=== PATIENT | male | born 1950 | race Two or more races ===

== ENCOUNTER 2024-07-29 10:32 | Emergency (ER) | payer MEDICARE, SELFPAY ==
[2024-07-29 10:49] VITALS: BP 142/83; PULSE 98; RESP 18; TEMP 37.3; O2SAT 95; BMI 41.0
--- NOTE | 2024-07-29 10:59 | PD.EDRME ---
Rapid Medical Screening Exam E Arrival date/time: 07/29/24 10:32 This is a 74-year-old male that comes in with complaints of abdominal pain nausea vomiting for the past 2 days. Patient states he has not had a bowel movement in 2 days. Patient does have a history of diabetes, hyperlipidemia, and high blood pressure. Patient states he has some pain with urination. I have greeted and performed a focused initial assessment of this patient. Initial appropriate labs ordered at this time. A comprehensive ED assessment and evaluation of the patient and analysis of all test and completion of medical decision making process will be conducted by additional ED provider. Chief Complaint: Abdominal Pain Time Seen by Provider: 07/29/24 10:51 Vital signs: Vital Signs Temperature 99.2 F 07/29/24 10:49 Pulse Rate 98 07/29/24 10:49 Respiratory Rate 18 07/29/24 10:49 Blood Pressure 142/83 H 07/29/24 10:49 Pulse Oximetry (%) 95 07/29/24 10:49 Oxygen Delivery Method Room Air 07/29/24 10:49
--- NOTE | 2024-07-29 11:00 | XR_ITS ---
Examination: Abdomen AP single view Technique: AP portable supine abdomen, single view Exam date and time: July 29, 2024 at 1105 hours INDICATIONS: Abdominal pain and vomiting beginning 2 days ago FINDINGS: Moderate to large amount stool in the right colon No obstruction Mild small bowel ileus air distended small bowel loops in the left abdomen No free air Moderate osteopenia IMPRESSION: Minimal small bowel ileus
[2024-07-29 11:35] LABS: Basophils % (Auto) 0 % (0-2.5); Eosinophils # (Auto) 0.3 Thou/mm3 (0.0-0.5); Eosinophils % (Auto) 3 % (0-10); Hematocrit 39.5 % (41.0-53.0); Hemoglobin 13.5 g/dL (13.5-16.0); Immature Granulocytes % (Auto) 0 % (0-0); Immature Granulocytes Auto 0.02 Thou/mm3 (0.00-0.00); Lymphocytes # (Auto) 2.1 Thou/mm3 (1.0-4.8); Lymphocytes % (Auto) 22 % (10-50); Mean Corpuscular HGB Conc 34.2 g/dl (31.0-37.0); Mean Corpuscular Hemoglobin 30.2 pg (25.0-35.0); Mean Corpuscular Volume 88 fL (80-100); Monocytes # (Auto) 1.2 Thou/mm3 (0.0-0.8); Monocytes % (Auto) 12 % (0-12); Neutrophils # (Auto) 5.9 Thou/mm3 (1.8-7.7); Neutrophils % (Auto) 62 % (37-80); Nucleated Red Blood Cell % 0 /100 WBC (0); Platelet Count 310 Thou/mm3 (140-440); Red Blood Count 4.47 Miln/mm3 (4.50-5.90); White Blood Count 9.5 Thou/mm3 (3.8-10.6)
[2024-07-29 11:53] LABS: Alanine Aminotransferase 66 U/L (10-49); Albumin, Serum 4.3 gm/dL (3.4-4.8); Albumin/Globulin Ratio 1.5 (1.2-2.2); Alkaline Phosphatase 80 U/L (46-116); Anion Gap 9 (7-16); Aspartate Amino Transferase 46 U/L (0-34); BUN/Creatinine Ratio 5 Ratio (12-20); Bilirubin,Total 0.9 mg/dL (0.3-1.2); Blood Urea Nitrogen < 5 mg/dL (9-23); Calcium 8.7 mg/dL (8.3-10.6); Calcium (Corrected) 8.7 mg/dL (8.5-10.1); Carbon Dioxide 29.7 mMol/L (20.0-31.0); Chloride 93 mMol/L (98-107); Estimated Creatinine Clearance 66.9 mL/min (>60); Globulin 2.8 gm/dL (2.3-3.5); Glucose 216 mg/dL (74-106); Lipase 28 U/L (12-53); Osmolality,Calculated 268 (275-295); Potassium 3.6 mMol/L (3.4-5.1); Sodium 132 mMol/L (136-145); Total Protein 7.1 gm/dL (5.7-8.2); eGFR > 60 See Note
[2024-07-29 12:44] LABS: Collection Type, Urine Voided
[2024-07-29 12:54] LABS: Bilirubin,Urine Negative (Negative); Blood,Urine Trace (Negative); Clarity,Urine Clear (Clear/Hazy); Color,Urine Yellow (Lt Yel-Yel); Culture Indicated,Urine Not Indicated; Glucose, Urine Trace (Negative); Ketones,Urine Trace (Negative); Leukocyte Esterase,Urine Negative (Negative); Nitrite,Urine Negative (Negative); PH,Urine 5.5 (5.0-7.0); Protein,Urine Negative (Neg - Trace); RBC,Urine 1 /hpf (0-3); Specific Gravity,Urine 1.014 (1.001-1.035); Squamous Epithelial Cell,Urine < 1 /hpf (0-5); Urobilinogen,Urine Negative mg/dL (0.0-1.0); WBC,Urine 1 /hpf (0-5)
[2024-07-29 14:25] VITALS: BP 132/78; PULSE 76; RESP 18; TEMP 36.8; O2SAT 95
--- NOTE | 2024-07-29 14:44 | XR_ITS ---
Examination: CT abdomen with intravenous contrast CT pelvis with intravenous contrast 2-D coronal reconstructions 2-D sagittal reconstructions Date and time of exam:July 29, 2024, 1645 hours Comparison April 30, 2016 INDICATIONS: Abdominal pain and distention vomiting today. CTDI: vol (mGy) 14.6 DLP: (mGycm) 820 Technique: Multiple axial sections of the abdomen and pelvis have been obtained. 64 slice high-resolution scanner used. 3 mm axial sections have been obtained, post intravenous injection 60 cc [id number] 2-D sagittal, coronal reconstructions obtained. Low dose protocols were performed. One or more of the following dose reduction techniques were used; automated exposure control, adjustment of the mA and/or KV according to patient size, use of iterative reconstruction technique. Findings: No focal liver or splenic lesion Cholelithiasis No pancreatic or adrenal mass 5 cm lateral right renal cyst Minimal perinephric stranding Aorta normal size No pericecal inflammatory change No bowel obstruction Contracted urinary bladder Transverse prostate dimension 4.4 cm Moderate osteopenia IMPRESSION: Minimal perinephric stranding No CT findings of appendicitis or bowel obstruction Moderate prostatomegaly
--- NOTE | 2024-07-29 14:46 | PD.EDABDPN ---
ED Abdominal Pain RME/HPI General Chief Complaint: Abdominal Pain Stated complaint: CONSTIPATED, ABD PAIN Time seen by provider: 07/29/24 10:51 Arrival date/time: 07/29/24 10:32 RME / HPI RME / HPI narrative: 74-year-old male patient with significant history of diabetes mellitus, hypertension, came in for evaluation regarding abdominal distention. Patient's been having the abdominal distention for the last 2 days associated with no bowel movement, not passing gas, vomiting, last vomitus in the triage. Nonbloody. Patient denies any fever. Patient's been taking laxative and Dulcolax suppository with no relief. Abdominal surgery includes umbilical hernia 20 years ago. Related Data Home Medications ?Medication ?Instructions ?Recorded ?Confirmed diclofenac sodium 75 mg 75 mg PO BID PRN PAIN ##0 07/28/15 tablet,delayed release Glipizide/Metformin * (METAGLIP 1 tab PO QDAY #0 tabs 04/30/16 5/500 *) atorvastatin 10 mg tablet (Lipitor) 10 mg PO QDAY #0 tabs 04/30/16 losartan 50 mg tablet (Cozaar) 50 mg PO QDAY #0 tabs 04/30/16 Previous Rx's ?Medication ?Instructions ?Recorded ibuprofen 600 mg tablet 600 mg PO Q6HR PRN PAIN #30 tabs 07/28/15 Nitrofurantoin Macrocyrstals SR * 100 mg PO BID #28 caps 05/04/16 (MACROBID *) peg 3350-electrolytes 236 240 ml PO Q10M #4,000 mL 07/29/24 gram-22.74 gram-6.74 gram-5.86 gram solution (GaviLyte-G) Allergies Allergy/AdvReac Type Severity Reaction Status Date / Time Penicillins Allergy Severe Anaphylaxis Verified 05/02/16 10:04 Review of Systems Review of Systems Narrative Review of Systems: Review of system reviewed and within normal limits except mentioned in HPI ED Exam Narrative Physical exam: VITAL SIGNS: Reviewed. GENERAL APPEARANCE: Alert and interactive, follows commands, no acute distress, HEAD AND FACE: Non-traumatic. ENT: PERRL, pink conjunctivitis, eyelid no trauma, Mucous membrane moist. NECK: Supple, nontender, no nuchal rigidity. CHEST: No tenderness, no crepitus, no paradoxical movement, no retractions. LUNGS: Clear, well ventilated, symmetric, no rales, no wheezing, no ronchi, no stridor, good breath sounds bilaterally. HEART: Regular rate, regular rhythm, no murmur, no gallops. ABDOMEN: hyperactive bowel sounds, distended, no guarding, diffuse tenderness, no rebound, no masses, RECTAL: Deferred. GENITAL: Deferred. NEUROLOGICAL: Gross motor function intact sensory function intact, Appropriate for age. MUSCULOSKELETAL: low back nontender, full range of motion. EXTREMITIES: Nontender, full range of motion. SKIN: Color pink, dry, no rash, no lacerations, no abrasions, no contusions. LYMPHATICS: Deferred. Course Quality Measures none Orders Category Date Time Status CT Screening NOW Care 07/29/24 14:45 Active Fleet [Enema Administration] ONCE Care 07/29/24 14:[address] abdomen pelvis w con Stat Exams 07/29/24 14:44 Completed KUB [XR abdomen 1V] Stat Exams 07/29/24 11:00 Completed CBC Stat Lab 07/29/24 11:26 Completed Comprehensive Metabolic Panel Stat Lab 07/29/24 11:26 Completed Lipase Stat Lab 07/29/24 11:26 Completed Urinalysis, C/S if Indicated Stat Lab 07/29/24 12:37 Completed Ondansetron Inj [Zofran Inj] Med 07/29/24 14:44 Discontinued 4 mg IV X1 ONE Ringers Lactated 1000 ml [Lactated Ringers] 1,000 ml Med 07/29/24 14:45 Discontinued IV 999 mls/hr Vital Signs Vital signs: Vital Signs Temperature 99.2 F 07/29/24 10:49 Pulse Rate 98 07/29/24 10:49 Respiratory Rate 18 07/29/24 10:49 Blood Pressure 142/83 H 07/29/24 10:49 Pulse Oximetry (%) 95 07/29/24 10:49 Oxygen Delivery Method Room Air 07/29/24 10:49 Abdominal Pain MDM MDM Narrative MDM Narrative:: 74-year-old male patient with significant history of diabetes mellitus, hypertension, came in for evaluation regarding abdominal distention. Patient's been having the abdominal distention for the last 2 days associated with no bowel movement, not passing gas, vomiting, last vomitus in the triage. Nonbloody. Patient denies any fever. Patient's been taking laxative and Dulcolax suppository with no relief. Abdominal surgery includes umbilical hernia 20 years ago. Patient's workup today all came back unremarkable. Including urinalysis no UTI. CT scan of the abdomen pelvis showed Minimal perinephric stranding No CT findings of appendicitis or bowel obstruction Moderate prostatomegaly Patient was given Fleet enema with no results. Patient will be sent home on [facility]. No vomiting noted. Patient data External records reviewed:: None Clinical information provided by:: patient Social determinants that could affect healthcare access:: none Patient has the following chronic illnesses:: Hypertension How is presenting disease/condition affected by chronic disease/condition?: exacerbated by Evaluation data The following diagnostics were reviewed and interpreted by me:: lab results and radiology exam(s) Lab and/or radiology exams considered but not ordered:: None Interpretation Summary: See results MDM Medications / Prescriptions Medications or Prescriptions considered but not ordered:: none Medication administrations:: Medication Administration History Discontinued Medications Lactated Ringer's (Lactated Ringers) 1,000 mls @ 999 mls/hr IV .Q1H1M ONE Stop: 07/29/24 15:45 Last Admin: 07/29/24 16:23 Dose: 999 mls/hr Documented By: MANUEL Ondansetron HCl (Ondansetron Inj 2 Mg/Ml Inj 2 Ml) 4 mg IV X1 ONE; Protocol Stop: 07/29/24 14:45 Last Admin: 07/29/24 16:22 Dose: 4 mg Documented By: MANUEL IV fluids, Zofran and Fleet enema Consultations Consultation(s) initiated? (list below): No Diagnosis Differential diagnosis abdominal pain: abdominal pain and small bowel obstruction Most likely diagnosis given after review of the tests above:: Constipation Admission Indicated Admission indicated?: not indicated Admission Request Was there a request for admission?: No Disposition Plan Disposition Plan: Discharge Discharge Attestation Discharge Attestation: The patient and all family members were given an opportunity to ask questions and understood the discharge instructions. Discharge instructions specifically effects, indications for sooner follow up or return to the emergency department, and the expected course of current diagnosis. Patient condition: Stable Discharge Plan Plan Patient Disposition: HOME (Self Care) Discharge Disposition comment: stable Prescriptions/Referrals Prescriptions/Med Rec: New peg 3350-electrolytes [GaviLyte-G] 236-22.74-6.74 -5.86 gram recon soln 240 ml PO Q10M Qty: 4000 0RF Rx Instructions: until fecal effluent is clear No Action diclofenac sodium 75 MG tablet,delayed release (DR/EC) 75 mg PO BID PRN (Reason: PAIN) Qty: 0 ibuprofen 600 MG tablet 600 mg PO Q6HR PRN (Reason: PAIN) Qty: 30 0RF losartan [Cozaar] 50 MG tablet 50 mg PO QDAY Qty: 0 atorvastatin [Lipitor] 10 MG tablet 10 mg PO QDAY Qty: 0 Glipizide/Metformin * (METAGLIP 5/500 *) 1 TAB tablet 1 tab PO QDAY Qty: 0 Nitrofurantoin Macrocyrstals SR * (MACROBID *) 100 MG capsule 100 mg PO BID Qty: 28 0RF Referrals: No Primary/Family,Physician [Primary Care Provider] - In 1 week Problem List Clinical Impression: Constipation Patient/Caregiver Discharge Instructions Discharge Activity: activity as tolerated Education Materials: ED Constipation (Adult) Additional Instructions: Thank you for the opportunity for serving you today. You are stable for discharged . You are advised to: Follow-up with your PCP in 1 to 2 days Return to ED for worsening of symptoms Increase oral fluids Take medication as prescribed Print Language: Kiswahili Stand Alone Forms: Rashida Award Info., Patient Portal Info Letter JAYASHREE/ZAMZAM Supervising Physician JAYASHREE/ZAMZAM Supervising Physician: MD Lis
[2024-07-29] MEDS: ONDANSETRON INJ 2 MG/ML INJ 2 ML 4 MG IV (16:22)
[2024-07-29] MEDS: RINGERS LACTATED 1000 ML 1,000 ML 999 ML IV (16:23)
[2024-07-29 16:25] VITALS: BP 113/72; PULSE 80; RESP 20; O2SAT 94
[2024-07-29 19:00] VITALS: BP 112/64; PULSE 62; RESP 18; TEMP 36.7; O2SAT 95
== END 2024-07-29 19:26 | disposition home or self-care (01) ==
PROVIDERS: Nurse Practitioner Family; Emergency Provider Emergency Medicine
DX: K59.00 Constipation, unspecified (principal); N40.0 Benign prostatic hyperplasia without lower urinary tract symptoms
CPT/HCPCS: 36415; 74018; 74177; 80053; 81001; 83690; 85025; 96374; 99285; A4649; J2405; J7120; Q9967